=== PATIENT | male | born 1995 | race Caucasian/White ===

== ENCOUNTER 2018-12-12 14:35 | Emergency (ER) | payer OTHER ==
[~2018-12-12] VITALS: Ht 185.4 cm; Wt 86.2 kg
[2018-12-12 14:35] VITALS: BP 148/66
--- NOTE | 2018-12-12 14:35 | NUR ---
ED Nurse Note: pt brought by RA from front of building due to agitation after usind drug. no Si/HI. pt follow the command and AAO x4. but appears to be restless. RN re instructed pt to stay in bed. respirations even and non-labored noted. breath sounds clear. multiple bruised and burn rhoades noted on buttocks, fingers, legs. per pt " I accidently wash with nail armenian with water." on bus driver/monitor. will wait for the further order.
[2018-12-12] MEDS ORDERED: Neosporin Oint Ud Pkt TOPIC ONE (14:45)
[2018-12-12] MEDS ORDERED: LORazepam Inj 2mg/ml 1ml IV ONE ×2 (14:45→16:00)
--- NOTE | 2018-12-12 14:52 | Emergency Room Report ---
History of Present Illness General Chief Complaint: Behavioral Complaint Source: Patient, EMS Present Illness HPI The patient presents with altered level of consciousness. EMS was summoned. He was on somebody's lawn that is not his property. He admitted to them that he has been doing crystal meth. He denies any pain. He feels somewhat thirsty. He used [place] on his legs and has chemical infante there. His tetanus is up-to-date. He denies suicidal or homicidal intent. No fevers, chills, sore throat, chest pain, palpitations, nausea, vomiting, diarrhea, dysuria, abdominal pain, shortness of breath, joint pain, depression, anxiety, visual changes, headache. Allergies: Coded Allergies: No Known Allergies (Unverified , 12/12/18) Patient History Past Medical History: see triage record Social History: Reports: drug use Social History Narrative Lives in an apartment Reviewed Nursing Documentation: PMH: Agreed; PSxH: Agreed Nursing Documentation-PMH Past Medical History: No Stated History Review of Systems All Other Systems: negative except mentioned in HPI Physical Exam Vital Signs Date Time Temp Pulse Resp B/P (MAP) Pulse Ox O2 Delivery O2 Flow Rate FiO2 12/12/18 14:26 98.2 112 18 148/91 (110) 99 Room Air Sp02 EP Interpretation: reviewed, normal General Appearance: no apparent distress, alert, GCS 15, non-toxic, other - Responding to unwitnessed external stimuli Head: normocephalic Eyes: bilateral eye PERRL - Dilated pupils, bilateral eye Scleral Injection ENT: dry mucus membranes Neck: full range of motion, supple Respiratory: lungs clear Cardiovascular #1: no edema, tachycardia Cardiovascular #2: 2+ radial (L) Gastrointestinal: non tender, soft, decreased bowel sounds, scaphoid Genitourinary: no CVA tenderness Musculoskeletal: back normal, digits/nails normal Neurologic: alert, clipper machine III-XII nml as tested, motor strength/tone normal, DTRs symmetric, sensory intact, cerebellar normal, speech normal, oriented - X2 Psychiatric: no suicidal/homicidal ideation, other - Responding to external nonexistent stimuli Skin: warm/dry, other - Excoriations or infante lower extremities Medical Decision Making Diagnostic Impression: Primary Impression: Elevated troponin Additional Impressions: Rhabdomyolysis Qualified Codes: M62.82 - Rhabdomyolysis Amphetamine abuse ER Course Patient presents with altered mentation after alleging use of crystal meth. Differential includes methamphetamine toxicity, multiple drug ingestion, elect light imbalance, tachycardia and dehydration amongst others. Patient evaluated with EKG, chest x-ray and labs. Patient will receive aggressive IV hydration and a dose of Ativan. Patient is placed on a monitoring tech. We need to exclude rhabdomyolysis. EKG with sinus tachycardia rate 105 which is improved from triage. Mildly elevated white count. Minimally elevated BUN. Rest of CBC is normal. Called with + troponin. Also CK > 10,000. Bicarb IV ordered. Aspirin administered Patient improved with Ativan. Patient refuses to stay in the hospital. Discussed risk of from heart attack and the possibility of development of renal failure leading to dialysis. Patient understands these risks but because she is putting out urine he still wants to go to his apartment. Patient signed out AGAINST MEDICAL ADVICE. Laboratory Tests Test 12/12/18 14:50 12/12/18 16:10 White Blood Count 12.3 K/UL (4.8-10.8) H Red Blood Count 5.67 M/UL (4.70-6.10) Hemoglobin 16.7 G/DL (14.2-18.0) Hematocrit 49.7 % (42.0-52.0) Mean Corpuscular Volume 88 FL (80-99) Mean Corpuscular Hemoglobin 29.4 PG (27.0-31.0) Mean Corpuscular Hemoglobin Concent 33.6 G/DL (32.0-36.0) Red Cell Distribution Width 12.0 % (11.6-14.8) Platelet Count 323 K/UL (150-450) Mean Platelet Volume 5.9 FL (6.5-10.1) L Neutrophils (%) (Auto) 76.2 % (45.0-75.0) H Lymphocytes (%) (Auto) 11.2 % (20.0-45.0) L Monocytes (%) (Auto) 11.9 % (1.0-10.0) H Eosinophils (%) (Auto) 0.0 % (0.0-3.0) Basophils (%) (Auto) 0.6 % (0.0-2.0) Sodium Level 137 MMOL/L (136-145) Potassium Level 4.5 MMOL/L (3.5-5.1) Chloride Level 98 MMOL/L (98-107) Carbon Dioxide Level 27 MMOL/L (21-32) Anion Gap 12 mmol/L (5-15) Blood Urea Nitrogen 25 mg/dL (7-18) H Creatinine 1.3 MG/DL (0.55-1.30) Estimate Glomerular Filtration Rate > 60 mL/min (>60) Glucose Level 79 MG/DL (74-106) Calcium Level 9.5 MG/DL (8.5-10.1) Total Bilirubin 1.3 MG/DL (0.2-1.0) H Direct Bilirubin 0.3 MG/DL (0.0-0.3) Aspartate Amino Transferase (AST) 255 U/L (15-37) H Alanine Aminotransferase (ALT) 80 U/L (12-78) H Alkaline Phosphatase 58 U/L (46-116) Total Creatine Kinase > 32589 U/L (26-308) H Troponin I 0.115 ng/mL (0.000-0.056) Total Protein 8.2 G/DL (6.4-8.2) Albumin 4.7 G/DL (3.4-5.0) Globulin 3.5 g/dL Albumin/Globulin Ratio 1.3 (1.0-2.7) Salicylates Level < 0.2 ug/mL (2.8-20) L Acetaminophen Level < 2 MCG/ML (10-30) L Serum Alcohol < 3 mg/dL Urine Color Yellow Urine Appearance Clear Urine pH 5 (4.5-8.0) Urine Specific [place] 1.025 (1.005-1.035) Urine Protein 2+ (NEGATIVE) H Urine Glucose (UA) Negative (NEGATIVE) Urine Ketones 3+ (NEGATIVE) H Urine Blood 4+ (NEGATIVE) H Urine Nitrite Negative (NEGATIVE) Urine Bilirubin Negative (NEGATIVE) Urine Urobilinogen Normal MG/DL (0.0-1.0) Urine Leukocyte Esterase Negative (NEGATIVE) Urine RBC 2-4 /HPF (0 - 0) H Urine WBC 0-2 /HPF (0 - 0) Urine Squamous Epithelial Cells Occasional /LPF Urine Bacteria Few /HPF (NONE) Urine Hyaline Casts 2-4 /LPF (NONE) H Urine Opiates Screen Negative (NEGATIVE) Urine Barbiturates Screen Negative (NEGATIVE) Phencyclidine (PCP) Screen Negative (NEGATIVE) Urine Amphetamines Screen Positive (NEGATIVE) H Urine Benzodiazepines Screen Negative (NEGATIVE) Urine Cocaine Screen Negative (NEGATIVE) Urine Marijuana (THC) Screen Negative (NEGATIVE) EKG Diagnostic Results Rate: tachycardiac Rhythm: NSR ST Segments: no acute changes ASA given to the pt in ED: Yes Rhythm Strip Diag. Results EP Interpretation: yes Rhythm: no PVC's, no ectopy, other - Sinus tachycardia Chest X-Ray Diagnostic Results Chest X-Ray Diagnostic Results : Chest X-Ray Ordered: Yes # of Views/Limited/Complete: 1 View Indication: Other EP Interpretation: Yes Interpretation: no consolidation, no effusion, no pneumothorax Impression: No acute disease Electronically Signed by: Electronically signed by Dave Tanner MD Last Vital Signs Date Time Temp Pulse Resp B/P (MAP) Pulse Ox O2 Delivery O2 Flow Rate FiO2 12/12/18 17:50 98.0 87 18 117/70 100 Room Air Status: improved Disposition: AGAINST MEDICAL ADVICE Condition: Serious Scripts No Active Prescriptions or Reported Meds Dave Tanner MD Dec 12, 2018 14:52
[2018-12-12 15:02] LABS: BASOPHILS % (AUTO) 0.6 % (0.0-2.0); HEMATOCRIT 49.7 % (42.0-52.0); HEMOGLOBIN 16.7 G/DL (14.2-18.0); LYMPHOCYTES % (AUTO) 11.2 % (20.0-45.0); MEAN CORPUSCULAR VOLUME 88 FL (80-99); MONOCYTES % (AUTO) 11.9 % (1.0-10.0); NEUTROPHILS % (AUTO) 76.2 % (45.0-75.0); PLATELET COUNT 323 K/UL (150-450); RED BLOOD COUNT 5.67 M/UL (4.70-6.10); WHITE BLOOD COUNT 12.3 K/UL (4.8-10.8)
[2018-12-12 15:21] LABS: ANION GAP 12 mmol/L (5-15); BLOOD UREA NITROGEN 25 mg/dL (7-18); CALCIUM 9.5 MG/DL (8.5-10.1); CARBON DIOXIDE 27 MMOL/L (21-32); CHLORIDE 98 MMOL/L (98-107); CREATININE 1.3 MG/DL (0.55-1.30); POTASSIUM 4.5 MMOL/L (3.5-5.1); SODIUM 137 MMOL/L (136-145)
[2018-12-12 15:41] LABS: ALANINE AMINOTRANSFERASE 80 U/L (12-78); ALBUMIN 4.7 G/DL (3.4-5.0); ALBUMIN/GLOBULIN RATIO 1.3 (1.0-2.7); ALKALINE PHOSPHATASE 58 U/L (46-116); ASPARTATE AMINO TRANSFERASE 255 U/L (15-37); BILIRUBIN,TOTAL 1.3 MG/DL (0.2-1.0); CREATINE KINASE > 10000 U/L (26-308)
[2018-12-12 15:42] LABS: BILIRUBIN,DIRECT 0.3 MG/DL (0.0-0.3)
--- NOTE | 2018-12-12 15:44 | Diagnostic Imaging Report ---
EXAM: XR Chest, 1 View CLINICAL HISTORY: ALOC TECHNIQUE: Frontal view of the chest. COMPARISON: No relevant prior studies available. FINDINGS: Lungs: No consolidation. Pleural space: Unremarkable. No pneumothorax. Heart: Borderline cardiomegaly, potentially exaggerated by portable technique. Mediastinum: Unremarkable. Bones joints: Unremarkable. IMPRESSION: Borderline cardiomegaly, potentially exaggerated by portable technique. No overt pulmonary edema.
[2018-12-12] MEDS ORDERED: Sodium Bicarbonate 150 ML in D5W 1000ml 1,000 ML IV SCH (15:45)
[2018-12-12 16:00] VITALS: BP 129/74
--- NOTE | 2018-12-12 16:19 | NUR ---
ED Nurse Note: RX called for bicab. they will deliver after it is ready.
[2018-12-12 16:42] LABS: APPEARANCE,URINE CLEAR; BILIRUBIN, URINE NEGATIVE (NEGATIVE); COLOR,URINE YELLOW; GLUCOSE, URINE (UA) NEGATIVE (NEGATIVE); KETONES,URINE 3+ (NEGATIVE); LEUKOCYTE ESTERASE ,URINE NEGATIVE (NEGATIVE); NITRITE,URINE NEGATIVE (NEGATIVE); PH,URINE 5 (4.5-8.0); PROTEIN,URINE 2+ (NEGATIVE); UROBILINOGEN,URINE NORMAL MG/DL (0.0-1.0)
--- NOTE | 2018-12-12 17:20 | NUR ---
ED Nurse Note: pt found not connect to chimney construction supervisor. per pt, " I like to leave. I do not want to stay." RN explained the process. reconnect the chimney construction supervisor. Dr. Tanner notified that pt wants to sign AMA. will wait for the further order.
--- NOTE | 2018-12-12 17:40 | NUR ---
Lily martel in EDM - 12/12/18 at 1748 by QLE ED Nurse Note: pt's BP eric to 90/63 after administration of narcan
[2018-12-12 17:50] VITALS: BP 117/70
--- NOTE | 2018-12-12 17:51 | NUR ---
ED Nurse Note: pt signed AMA. per pt, " I know my body, I need to take care something at home." Dr. Tanner explained risk include continued illness, worsening of sx, permanent disability and . also benefits included dx and tx of illness. the pt is also assured that he may return to the ER at any time for tx.
--- NOTE | 2018-12-12 17:51 | NUR ---
AMA: SEE AMA FORM.
== END 2018-12-12 18:18 | disposition left against medical advice (07) ==
LOC: EDBD 14:35 → EMR 14:51 → CANBEDREQ 17:43 → EMR 18:18
DX: M62.82 Rhabdomyolysis (principal); F15.10 Other stimulant abuse, uncomplicated; R79.89 Other specified abnormal findings of blood chemistry; R00.0 Tachycardia, unspecified
CPT/HCPCS: 36415; 71045; 80053; 80196; 80307; 80329; 81003; 82248; 82550; 84484; 85025; 93005; 96361; 96365; 96375; 96376; J3490; J7070; Z7502; 99284

== ENCOUNTER 2019-11-22 17:37 | Emergency (ER) | payer SELFPAY ==
[~2019-11-22] VITALS: Ht 182.9 cm; Wt 90.7 kg
--- NOTE | 2019-11-22 17:40 | NUR ---
ED Nurse Note: pt brought in by ra26 from outside of someone's lawn for bizzare behavior. pt states he snorted adderal (unknown amount). pt pupil is dilated, incoherrent.
[2019-11-22 17:41] VITALS: BP 137/80
--- NOTE | 2019-11-22 17:46 | NUR ---
ED Nurse Note: pt noted to be anxious, pacing around inside the room, talking to himself.
--- NOTE | 2019-11-22 17:48 | NUR ---
ED Nurse Note: Report given to TONI lin
[2019-11-22] MEDS ORDERED: LORazepam Inj 2mg/ml 1ml ONE (17:56)
[2019-11-22] MEDS ORDERED: LORazepam Inj 2mg/ml 1ml IM ONE (18:00)
--- NOTE | 2019-11-22 18:15 | NUR ---
ED Nurse Note: pt able to follow simple commands but talks very fast to himself, he has addressed and spoken to several different names when he is in the room by himself. RN found patient wet with what appears to be water, water all over the floor and both gurneys in treatment room. pt and room cleaned and dried for pt comfort and safety. PATRICIA Rob is at pt bedside
[2019-11-22 18:51] LABS: BASOPHILS % (AUTO) 0.7 % (0.0-2.0); HEMATOCRIT 45.1 % (42.0-52.0); HEMOGLOBIN 15.3 G/DL (14.2-18.0); LYMPHOCYTES % (AUTO) 8.7 % (20.0-45.0); MEAN CORPUSCULAR VOLUME 88 FL (80-99); MONOCYTES % (AUTO) 8.1 % (1.0-10.0); NEUTROPHILS % (AUTO) 82.4 % (45.0-75.0); PLATELET COUNT 291 K/UL (150-450); RED BLOOD COUNT 5.13 M/UL (4.70-6.10); RED CELL DISTRIBUTION WIDTH 12.3 % (11.6-14.8); WHITE BLOOD COUNT 11.7 K/UL (4.8-10.8)
--- NOTE | 2019-11-22 19:00 | NUR ---
HAND-OFF: Report given to TONI Toribio.
--- NOTE | 2019-11-22 19:05 | NUR ---
ED Nurse Note: Report received from TONI Sal. Patient is walking around room, acting bizzare. Breathing is normal and unlabored. Will continue to monitor patient with RN bedside. No acute distress.
--- NOTE | 2019-11-22 19:10 | Emergency Room Report ---
History of Present Illness General Chief Complaint: Substance Abuse Source: Patient (Indira Fowler) Present Illness HPI 24-year-old male presents to the emergency department brought by ambulance for hyperactive and bizarre behavior. According to paramedics the patient was found in the backyard of someone who he did not know. Patient has not been violent. Patient has been hyperactive and very talkative. According to EMS the patient snorted unknown amount of Adderall. HPI and ROS are limited due to poor patient cooperation and frequent need of redirection during questioning. Patient at times will speak gibberish to himself/someone else who is not in the room. Patient states he was recently seen at a hospital in [place].- Pt. reports hx of meth use and endorses having been to rehab in the past. Denies pain at this time. Pt. denies SI/HI. He denies PSA's. PT. does not answer wether or not he is prescribed or taking any medications. (Indira Fowler) Allergies: Coded Allergies: No Known Allergies (Unverified , 12/12/18) COVID-19 Screening Contact w/high risk pt: No Experienced COVID-19 symptoms?: No COVID-19 Testing performed CNA PER DIEM: No (Indira Fowler) Patient History Past Medical History: see triage record Past Surgical History: none Pertinent Family History: none Reviewed Nursing Documentation: PMH: Agreed; PSxH: Agreed (Indira Fowler) Nursing Documentation-PMH Past Medical History: No History, Except For History Of Psychiatric Problem: Yes (Indira Fowler) Review of Systems All Other Systems: limited - Pt. in acute drug induced psychosis and responding to nonexistant external stimuli. (Indira Fowler) Physical Exam Vital Signs Date Time Temp Pulse Resp B/P (MAP) Pulse Ox O2 Delivery O2 Flow Rate FiO2 11/22/19 17:29 97.9 118 19 137/80 (99) 98 Room Air Sp02 EP Interpretation: reviewed, normal General Appearance: no apparent distress, alert, GCS 15, non-toxic Head: normocephalic, atraumatic Eyes: bilateral eye normal inspection, bilateral eye PERRL - grossly dilated pupils bilaterally. ENT: hearing grossly normal, normal voice Neck: full range of motion Respiratory: chest non-tender, lungs clear, normal breath sounds, no wheezing, speaking full sentences Cardiovascular #1: regular rate, rhythm, normal capillary refill Cardiovascular #2: 2+ radial (R), 2+ radial (L) Gastrointestinal: normal bowel sounds, non tender, soft, non-distended, no guarding Musculoskeletal: back normal, normal range of motion, gait/station normal, non- tender Neurologic: alert, motor strength/tone normal, oriented x3, sensory intact, responsive, speech normal Psychiatric: judgement/insight normal, no suicidal/homicidal ideation, anxious , other - Pt. in acute drug induced psychosis and responding to nonexistant external stimuli. Skin: abrasion - to the medial aspect of the right foot., there is an unroofed blister on the bottom of the right foot. no surrounding erythema. , other - NO obvious abscess formations (Indira Fowler) Medical Decision Making PA Attestation Dr. العراقي is my supervising Physician whom patient management has been discussed with. (Indira Fowler) Diagnostic Impression: Primary Impression: Substance abuse Additional Impressions: Amphetamine abuse ROSAS (acute kidney injury) Psychosis Qualified Codes: F23 - Brief psychotic disorder ER Course 24-year-old male presents to the emergency department brought by ambulance for hyperactive and bizarre behavior. According to paramedics the patient was found in the backyard of someone who he did not know. Patient has not been violent. Patient has been hyperactive and very talkative. According to EMS the patient snorted unknown amount of Adderall. HPI and ROS are limited due to poor patient cooperation and frequent need of redirection during questioning. Patient at times will speak gibberish to himself/someone else who is not in the room. Patient states he was recently seen at a hospital in [place].- Pt. reports hx of meth use and endorses having been to rehab in the past. Denies pain at this time. Pt. denies SI/HI. He denies PSA's. PT. does not answer wether or not he is prescribed or taking any medications. Pt is hyperactive, and has a very anxious and restless affect. Ddx considered but are not limited to OD, SI/HI, psychosis, UTI, intoxication Vital signs: are WNL, pt. is afebrile H&PE are most consistent with behavioral/mental health issue ORDERS: -CBC: WNL - CMP: Cr. 2.1 with elevated BUN --pt given IV fluids -UA: Pending at time of sign out -UDS: pending at time of sign out -Salicylates and Acetaminophen - no acute intoxication. -Serum ETOH : no acute intoxication. ED INTERVENTIONS: -2mg Ativan IV -1 Liter NS bolus IV DISPOSITION: Pt. signed out to Dr. العراقي pending final disposition. Labs Test 11/22/19 18:12 White Blood Count 11.7 K/UL (4.8-10.8) Red Blood Count 5.13 M/UL (4.70-6.10) Hemoglobin 15.3 G/DL (14.2-18.0) Hematocrit 45.1 % (42.0-52.0) Mean Corpuscular Volume 88 FL (80-99) Mean Corpuscular Hemoglobin 29.7 PG (27.0-31.0) Mean Corpuscular Hemoglobin Concent 33.8 G/DL (32.0-36.0) Red Cell Distribution Width 12.3 % (11.6-14.8) Platelet Count 291 K/UL (150-450) Mean Platelet Volume 7.4 FL (6.5-10.1) Neutrophils (%) (Auto) 82.4 % (45.0-75.0) Lymphocytes (%) (Auto) 8.7 % (20.0-45.0) Monocytes (%) (Auto) 8.1 % (1.0-10.0) Eosinophils (%) (Auto) 0.0 % (0.0-3.0) Basophils (%) (Auto) 0.7 % (0.0-2.0) Sodium Level 137 MMOL/L (136-145) Potassium Level 4.1 MMOL/L (3.5-5.1) Chloride Level 95 MMOL/L (98-107) Carbon Dioxide Level 25 MMOL/L (21-32) Anion Gap 17 mmol/L (5-15) Blood Urea Nitrogen 36 mg/dL (7-18) Creatinine 2.1 MG/DL (0.55-1.30) Estimat Glomerular Filtration Rate 38.4 mL/min (>60) Glucose Level 89 MG/DL (74-106) Calcium Level 9.6 MG/DL (8.5-10.1) Total Bilirubin 2.3 MG/DL (0.2-1.0) Direct Bilirubin 0.3 MG/DL (0.0-0.3) Aspartate Amino Transf (AST/SGOT) 264 U/L (15-37) Alanine Aminotransferase (ALT/SGPT) 98 U/L (12-78) Alkaline Phosphatase 68 U/L (46-116) Total Protein 9.2 G/DL (6.4-8.2) Albumin 5.5 G/DL (3.4-5.0) Globulin 3.7 g/dL Albumin/Globulin Ratio 1.5 (1.0-2.7) Salicylates Level < 0.2 ug/mL (2.8-20) Acetaminophen Level < 2 MCG/ML (10-30) Serum Alcohol < 3 mg/dL (Indira Fowler) ER Course Patient signed out to me. He presents with psychosis secondary to drug abuse. Is also dehydrated with acute kidney injury. Patient received IV fluid here. He received medication for sedation. He slept through the night. Now is better. Not suicidal or homicidal. No criteria for 5150. Will discharge home. This patient is a chronic risk of self injury due to poor impulse control, limited coping skills, and judgment intermittently impaired by intoxication. I believe that the available clinical evidence to suggest that these characteristics derived primarily from personality disorder and are likely very stable over time. Hospitalization would likely attenuate risk of self-harm only during intermediate period, without lasting risk reduction. Serious self-harm , while possible, would likely be inadvertent, and because of impulsivity, and foreseeable. For these reasons, I do not believe hospitalization would provide meaningful reduction in risk of self-harm. (Jose A Ryder MD) EKG Diagnostic Results Rate: tachycardiac - 108 Rhythm: NSR ST Segments: no acute changes ASA given to the pt in ED: No PA Scribe Text This Interpretation was scribed by NASRIN Fowler. (Indira Fowler) Last Vital Signs Date Time Temp Pulse Resp B/P (MAP) Pulse Ox O2 Delivery O2 Flow Rate FiO2 11/22/19 17:58 112 20 137/80 98 11/22/19 17:41 97.9 Room Air (Indira Fowler) Status: improved (Jose A Ryder MD) Disposition: HOME, SELF-CARE Condition: Stable Signed Out To: Dr. العراقي (Indira Fwoler) Scripts No Active Prescriptions or Reported Meds Referrals: NOT CHOSEN IPA/,REFERRING (PCP) Patient Instructions: Stimulant Use Disorder-Methamphetamines Additional Instructions: Stop using drugs and alcohol. Follow-up with rehab in 7 days. Follow-up with your doctor in 7 days. Return if worse. Indira Fowler Nov 22, 2019 19:10 Jose A Ryder MD Nov 23, 2019 03:48
[2019-11-22 19:33] LABS: ANION GAP 17 mmol/L (5-15); BLOOD UREA NITROGEN 36 mg/dL (7-18); CALCIUM 9.6 MG/DL (8.5-10.1); CARBON DIOXIDE 25 MMOL/L (21-32); CHLORIDE 95 MMOL/L (98-107); CREATININE 2.1 MG/DL (0.55-1.30); POTASSIUM 4.1 MMOL/L (3.5-5.1); SODIUM 137 MMOL/L (136-145)
--- NOTE | 2019-11-22 19:40 | NUR ---
ED Nurse Note: Patient IV on L AC was dislodged and no longer patent; RN discontinued line. New IV line started on R hand 22g.
[2019-11-22 19:43] LABS: ALANINE AMINOTRANSFERASE 98 U/L (12-78); ALBUMIN 5.5 G/DL (3.4-5.0); ALBUMIN/GLOBULIN RATIO 1.5 (1.0-2.7); ALKALINE PHOSPHATASE 68 U/L (46-116); ASPARTATE AMINO TRANSFERASE 264 U/L (15-37); BILIRUBIN,TOTAL 2.3 MG/DL (0.2-1.0)
[2019-11-22 19:46] LABS: BILIRUBIN,DIRECT 0.3 MG/DL (0.0-0.3)
--- NOTE | 2019-11-22 21:15 | NUR ---
ED Nurse Note: Patient assisted to the restroom with RN supervision. RN standing outside restroom and patient was found to be bathing in the sink. Water noted all over restroom floor and patient hair is wet with soap in it. Patient escorted back to room. RN bedside. Patient is in no acute distress, has no complaints.
[2019-11-22 22:00] VITALS: BP 129/88
--- NOTE | 2019-11-22 22:20 | NUR ---
ED Nurse Note: Patient is in bed rambling to himself and stating words that do not make sense. Patient given juice. RN monitoring patient.
--- NOTE | 2019-11-22 23:00 | NUR ---
ED Nurse Note: Patient still presents with bizzare behavior and is rambling to himself. ERMD bedside with patient. Will carry out medication order. RN continuously monitoring patient.
[2019-11-22] MEDS ORDERED: ZyPREXA Zydis 10mg tab ORAL ONE (23:15)
[2019-11-23] MEDS ORDERED: Haloperidol 5mg/ml Inj IM ONE (00:15)
--- NOTE | 2019-11-23 00:30 | NUR ---
ED Nurse Note: Patient is sleeping soundly at this time. Safety measures in place. Patient is breathing normal and unlabored. Will continue to monitor for change in condition.
--- NOTE | 2019-11-23 02:30 | NUR ---
ED Nurse Note: Patient remains sleeping at this time. Will cont. to monitor.
[2019-11-23 03:00] VITALS: BP 135/78
--- NOTE | 2019-11-23 04:00 | NUR ---
ED Nurse Note: Patient appears to be sleeping still. Will continue to monitor. No change in condition.
--- NOTE | 2019-11-23 05:15 | NUR ---
ED Nurse Note: Patient remains in bed, NAD. Safety measures in place. Patient woke up by RN to obtain family member phone number. Patient appears more calm and relaxed at this time, not acting bizzare. RN spoke with patient's father. 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
--- NOTE | 2019-11-23 05:15 | NUR ---
ED Nurse Note: Patient's father stated that patient normally takes zyprexa and does well on medication but has run out and is asking if MD can write prescription for medication. ERMD notified.
[2019-11-23] MEDS ORDERED: ZYPREXA5 MG ORAL (05:47)
[2019-11-23 05:55] VITALS: BP 122/70
--- NOTE | 2019-11-23 05:55 | NUR ---
ER DISCHARGE NOTE: Patient is cleared to be discharged per ERMD, pt is aox4, on room air, with stable vital signs. pt was given dc and prescription instructions, pt was able to verbalize understanding, pt id band and iv site removed without complications. pt is able to ambulate with steady gait. pt took all belongings and accompanied by father.
--- NOTE | 2019-11-23 14:18 | Cardiology Report ---
APPROVED REPORT EKG Measurement Heart [id number] <Conclusion> Poor data quality, interpretation may be adversely affected Sinus tachycardia Possible Left atrial enlargement Borderline ECG
== END 2019-11-23 05:55 | disposition home or self-care (01) ==
LOC: EDBD 17:37 → EMR 18:00
DX: F19.10 Other psychoactive substance abuse, uncomplicated (principal); F15.10 Other stimulant abuse, uncomplicated; N17.9 Acute kidney failure, unspecified; F23 Brief psychotic disorder; F19.959 Other psychoactive substance use, unspecified with psychoactive substance-induced psychotic disorder, unspecified; E86.0 Dehydration
CPT/HCPCS: 36415; 80053; 80307; 82248; 85025; 93005; 96360; 96372; 99284; G0480; J1630